=== PATIENT | male | born 1990 | race Asian ===

== ENCOUNTER 2023-07-10 13:46 | Outpatient (CLI) | payer OTHER | END 2023-07-10 13:47 | disposition home or self-care (01) | LOC: BICRAD 13:46 | PROVIDERS: ATTEND Student in an Organized Health Care Education/Training Program | DX: Z02.1 Encounter for pre-employment examination (principal); J98.4 Other disorders of lung | CPT/HCPCS: 71046 ==

== ENCOUNTER 2023-11-06 08:15 | Outpatient (CLI) | payer OTHER ==
[2023-11-06] MEDS ORDERED: Iopamidol 370 76% 100 ML VIAL ONE (10:26)
== END 2023-11-06 08:16 | disposition home or self-care (01) ==
LOC: CT 08:15
PROVIDERS: ATTEND Student in an Organized Health Care Education/Training Program
DX: R91.1 Solitary pulmonary nodule (principal)
CPT/HCPCS: 71260